=== PATIENT | female | born 1985 | race Caucasian/White ===

== ENCOUNTER → 2017-07-08 | Outpatient (REF) | payer OTHER | LOC: M LAB REF 17:25 | DX: J06.9 Acute upper respiratory infection, unspecified (principal) | CPT/HCPCS: 87633 ==

== ENCOUNTER → 2022-07-11 | Outpatient (CLI) | payer OTHER ==
[2022-07-11 14:52] LABS: ALBUMIN 3.8 G/DL (3.2-5.2); ALKALINE PHOSPHATASE 177 U/L (46-116); ALT/SGPT 14 U/L (7.0-40); AST/SGOT 21 U/L (<34); BILIRUBIN,TOTAL 0.2 MG/DL (0.3-1.2); BLOOD UREA NITROGEN 17 MG/DL (9-23); CALCIUM LEVEL 9.3 MG/DL (8.5-10.1); CARBON DIOXIDE LEVEL 22 MMOL/L (20-31); CHLORIDE LEVEL 107 MMOL/L (98-107); CREATININE FOR GFR 0.91 MG/DL (0.55-1.30); GLOMERULAR FILTRATION RATE > 60.0 (>60); GLUCOSE, FASTING 88 MG/DL (60-100); POTASSIUM SERUM 4.8 MMOL/L (3.5-5.1); SODIUM LEVEL 138 MMOL/L (136-145); TOTAL PROTEIN 7.4 G/DL (5.7-8.2)
[2022-07-11 14:55] LABS: THYROID STIMULATING HORMONE 1.793 uIU/ML (0.55-4.78)
[2022-07-11 15:33] LABS: HEMOGLOBIN A1c 5.4 % (4.0-6.0)
== END ==
LOC: M LAB 04-16 08:52 → M PLALAB 09:47
PROVIDERS: ATTEND Nurse Practitioner Adult Health
DX: R63.5 Abnormal weight gain (principal)

== ENCOUNTER → 2022-07-22 | Outpatient (CLI) | payer OTHER ==
[2022-07-23 12:05] LABS: FREE T4 0.78 NG/DL (0.89-1.76); THYROID STIMULATING HORMONE 1.569 uIU/ML (0.55-4.78); TOTAL 25(OH) VITAMIN D 19.2 NG/ML (20.0-100.0)
[2022-07-23 13:08] LABS: % LABILE ALKALINE PHOSPHATASE 61.9 %
== END ==
LOC: M PLALAB 16:30
PROVIDERS: ATTEND Family Medicine
DX: R74.8 Abnormal levels of other serum enzymes (principal)

== ENCOUNTER → 2022-08-25 | Outpatient (CLI) | payer OTHER ==
[2022-08-25 18:24] LABS: FREE T4 0.84 NG/DL (0.89-1.76)
[2022-08-25 18:25] LABS: THYROID STIMULATING HORMONE 1.602 uIU/ML (0.55-4.78)
== END ==
LOC: M PLALAB 15:41
PROVIDERS: ATTEND Family Medicine
DX: R94.6 Abnormal results of thyroid function studies (principal)

== ENCOUNTER → 2022-09-16 | Outpatient (CLI) | payer OTHER | LOC: M WHC 15:58 | PROVIDERS: ATTEND Nurse Practitioner Family | DX: Z12.31 Encounter for screening mammogram for malignant neoplasm of breast (principal) ==

== ENCOUNTER → 2022-09-24 | Outpatient (CLI) | payer OTHER | LOC: M WHC 09:39 | PROVIDERS: ATTEND Nurse Practitioner Family | DX: Z12.31 Encounter for screening mammogram for malignant neoplasm of breast (principal) ==

== ENCOUNTER → 2022-10-23 | Outpatient (CLI) | payer OTHER ==
[2022-10-23 12:26] LABS: FREE T4 0.93 NG/DL (0.89-1.76); THYROID STIMULATING HORMONE 1.278 uIU/ML (0.55-4.78)
== END ==
LOC: M PLALAB 08:41
PROVIDERS: ATTEND Family Medicine
DX: E03.9 Hypothyroidism, unspecified (principal)

== ENCOUNTER → 2022-11-26 | Outpatient (CLI) | payer OTHER | LOC: M PLAIMG 16:06 | PROVIDERS: ATTEND Nurse Practitioner Adult Health | DX: M79.672 Pain in left foot (principal); M77.32 Calcaneal spur, left foot ==

== ENCOUNTER → 2023-06-09 | Outpatient (CLI) | payer OTHER ==
[~2023-06-09] MED LIST: PROHANCE 279.3MG/ML 15ML VIAL As Ordered ONE
== END ==
LOC: M RAD 13:59
PROVIDERS: ATTEND Nurse Practitioner Family
DX: Z80.3 Family history of malignant neoplasm of breast (principal)

== ENCOUNTER 2024-09-19 02:17 | Emergency (ER) | payer OTHER ==
[~2024-09-19] VITALS: Ht 160 cm; Wt 68.9 kg
[2024-09-19] MEDS ORDERED: SERTRALINE (02:24)
[2024-09-19] MEDS ORDERED: LEVO50TA5 (02:24)
[2024-09-19] MEDS ORDERED: TIZA2TA (02:24)
[2024-09-19] MEDS ORDERED: BUPR75TA5 (02:24)
[2024-09-19] MEDS ORDERED: ACET-683 PO (02:24)
[2024-09-19] MEDS ORDERED: [UNRECOGNIZED DRUG - CODE] PO (02:24)
[2024-09-19] MEDS ORDERED: LOES1TAB9 PO (02:24)
[2024-09-19 02:55] LABS: KETONE, URINE AUTO RFX NEGATIVE (NEGATIVE); LEUKOCYTE ESTERASE UR AUTO RFX NEGATIVE (NEGATIVE); MUCUS, URINE RFX SMALL (NEGATIVE); NITRITE, URINE AUTO RFX NEGATIVE (NEGATIVE); RBC, URINE AUTO RFX 1 /HPF (0-3); SQUAM EPITHELIAL CELL UR AURFX 1 /HPF (0-6); WBC, URINE AUTO RFX 1 /HPF (0-3)
[2024-09-19 04:10] LABS: BASO % 0.3 % (0.0-1.0); EOS # 0.3 10^3/uL (0.0-0.5); EOS % 2.2 % (0.0-3.0); HEMATOCRIT 34.3 % (36.0-47.0); LYMPH # 2.6 10^3/uL (1.5-5.0); LYMPH % 22.3 % (24.0-44.0); MEAN CORPUSCULAR HEMOGLOBIN 28.5 pg (27.0-33.0); MEAN CORPUSCULAR HGB CONC 32.1 g/dl (32.0-36.5); MEAN CORPUSCULAR VOLUME 88.9 fl (80.0-96.0); MONO % 8.7 % (2.0-8.0); NEUTROPHILS # 7.6 10^3/uL (1.5-8.5); NEUTROPHILS % 66.2 % (36.0-66.0); PLATELET COUNT, AUTOMATED 387 10^3/uL (150-450); RED BLOOD COUNT 3.86 10^6/uL (4.00-5.40); WHITE BLOOD COUNT 11.5 10^3/uL (4.0-10.0)
[2024-09-19 04:50] LABS: BLOOD UREA NITROGEN 22 MG/DL (9-23); CALCIUM LEVEL 8.7 MG/DL (8.5-10.1); CARBON DIOXIDE LEVEL 20 MMOL/L (20-31); CHLORIDE LEVEL 104 MMOL/L (98-107); CREATININE FOR GFR 1.49 MG/DL (0.55-1.30); GLOMERULAR FILTRATION RATE 45.3 (>58); GLUCOSE, FASTING 87 MG/DL (60-100); HCG, SERUM QUANTITATIVE < 2.6 MIU/ML (<4.2); POTASSIUM SERUM 5.5 MMOL/L (3.5-5.1); SODIUM LEVEL 135 MMOL/L (136-145)
[2024-09-19] MEDS: KETOROLAC 30 MG/ML 1ML VIAL IV ONE (04:56)
[2024-09-19] MEDS: ONDANSETRON 4MG 2ML VIAL IV ONE (04:56)
[2024-09-19] MEDS ORDERED: KETO-204 PO (06:52)
[2024-09-19] MEDS ORDERED: TAMS-18 PO (06:52)
[2024-09-19] MEDS ORDERED: ONDA-282 PO (06:52)
[2024-09-19 07:03] VITALS: BP 113/59; TEMP 97.3; O2SAT 100
== END 2024-09-19 07:05 | disposition home or self-care (01) ==
LOC: M ED 02:17
DX: N20.1 Calculus of ureter (principal); K56.7 Ileus, unspecified; F10.10 Alcohol abuse, uncomplicated; Z79.1 Long term (current) use of non-steroidal anti-inflammatories (NSAID); Z79.2 Long term (current) use of antibiotics; Z79.899 Other long term (current) drug therapy
CPT/HCPCS: 74176; 80048; 81001; 84702; 85025; 96374; 99284; J1885; J2405

== ENCOUNTER → 2024-11-22 | Outpatient (CLI) | payer OTHER ==
[~2024-11-22] MED LIST changes: +ACET-683 PO; +BUPR75TA5; +KETO-204 PO; +LEVO50TA5; +LOES1TAB9 PO; +ONDA-282 PO; -PROHANCE 279.3MG/ML 15ML VIAL As Ordered ONE; +SERTRALINE; +TAMS-18 PO; +TIZA2TA; +[UNRECOGNIZED DRUG - CODE] PO
[2024-11-22 19:51] LABS: ALT/SGPT 19 U/L (7.0-40); AST/SGOT 22 U/L (<34); IRON (FE) 37 UG/DL (50-170); PERCENT SATURATION 9.0 % (13.2-45.0)
[2024-11-22 20:00] LABS: HEPATITIS B SURFACE ANTIBODY NEGATIVE (POSITIVE)
[2024-11-22 20:32] LABS: HEPATITIS C VIRUS ABY INDEX 0.08 INDEX (<0.8)
== END ==
LOC: M PLALAB 15:33
PROVIDERS: ATTEND Student in an Organized Health Care Education/Training Program
DX: R16.0 Hepatomegaly, not elsewhere classified (principal)

== ENCOUNTER → 2024-12-07 | Outpatient (CLI) | payer OTHER | LOC: M RAD 09:14 | PROVIDERS: ATTEND Student in an Organized Health Care Education/Training Program | DX: R16.0 Hepatomegaly, not elsewhere classified (principal) ==

== ENCOUNTER → 2024-12-07 | Outpatient (CLI) | payer OTHER ==
[~2024-12-07] MED LIST changes: +AJOV225I; -BUPR75TA5; +BUPR75TA5 PO; +DROS1TAB2 PO; +IBUP80TA PO; -LEVO50TA5; +LEVO50TA5 PO; +MULTCHW4 PO; +OMEP-173 PO; +SEMA2.4P; -TIZA2TA; +TIZA2TA PO; +ZOLO100T PO
== END ==
LOC: M RAD 09:16
PROVIDERS: ATTEND Physician Assistant
DX: N92.6 Irregular menstruation, unspecified (principal); N85.4 Malposition of uterus; N85.00 Endometrial hyperplasia, unspecified; D25.9 Leiomyoma of uterus, unspecified

== ENCOUNTER → 2025-01-09 | Outpatient (CLI) | payer OTHER ==
[2025-01-09 13:21] LABS: APPEARANCE, URINE CLEAR (CLEAR); BACTERIA, URINE AUTO 1+ (NEGATIVE); BILIRUBIN, URINE AUTO NEGATIVE (NEGATIVE); BLOOD, URINE BLOOD 2+ (NEGATIVE); GLUCOSE, URINE (UA) AUTO NEGATIVE (NEGATIVE); KETONE, URINE AUTO NEGATIVE (NEGATIVE); LEUKOCYTE ESTERASE, URINE AUTO NEGATIVE (NEGATIVE); MUCUS, URINE SMALL (NEGATIVE); NITRITE, URINE AUTO NEGATIVE (NEGATIVE); PROTEIN, URINE AUTO NEGATIVE (NEGATIVE); RBC, URINE AUTO 0 /HPF (0-3); SPECIFIC GRAVITY URINE AUTO 1.015 (1.002-1.035); SQUAMOUS EPITHELIAL CELL UR AU 0 /HPF (0-6); UROBILINOGEN, URINE AUTO 0.2 mg/dL (0.0-2.0); WBC, URINE AUTO 0 /HPF (0-3)
[2025-01-09 13:39] LABS: PLATELET COUNT, AUTOMATED 449 10^3/uL (150-450)
[2025-01-09 14:03] LABS: CALCIUM LEVEL 9.5 MG/DL (8.5-10.1); CARBON DIOXIDE LEVEL 23.0 MMOL/L (20-31); CHLORIDE LEVEL 105.0 MMOL/L (98-107); CREATININE FOR GFR 0.86 MG/DL (0.55-1.30); GLOMERULAR FILTRATION RATE 87.0 (>58); POTASSIUM SERUM 4.4 MMOL/L (3.5-5.1); PTH INTACT 32.9 PG/ML (18.5-88.0); SODIUM LEVEL 140.0 MMOL/L (136-145)
== END ==
LOC: M RAD 10:23
PROVIDERS: ATTEND Nurse Practitioner Family
DX: Z01.818 Encounter for other preprocedural examination (principal); N20.0 Calculus of kidney

== ENCOUNTER 2025-01-20 06:20 | Day surgery (SDC) | payer OTHER ==
[~2025-01-20] VITALS: Ht 160 cm; Wt 68.8 kg
[2025-01-20] MEDS ORDERED: LR 1,000 ML IV SCH (06:35)
[2025-01-20] MEDS ORDERED: LIDOCAINE 2% 100 MG/5 ML SDV (FOR ANES.) As Ordered ONE (07:18)
[2025-01-20] MEDS ORDERED: MIDAZOLAM INJ 2 MG/2 ML VIAL As Ordered ONE (07:21)
[2025-01-20] MEDS: SCOPOLAMINE 1MG TRANSDERMAL PATCH TOP ONE (07:24)
[2025-01-20] MEDS: ceFAZolin SOD 2 GM IV ONCE IV ONE (07:46)
[2025-01-20] MEDS ORDERED: ONDANSETRON 4MG 2ML VIAL As Ordered ONE (07:46)
[2025-01-20] MEDS ORDERED: dexAMETHasone 4 MG/ML 1 ML VIAL As Ordered ONE (07:47)
[2025-01-20] MEDS ORDERED: ACETAMINOPHEN 1000MG/100ML IV BAG As Ordered ONE (07:47)
[2025-01-20] MEDS: ISOVUE-300 61% 100 ML VIAL As Ordered ONE (08:01)
[2025-01-20] MEDS ORDERED: ONDANSETRON 4MG 2ML VIAL IV PRN (08:35)
[2025-01-20] MEDS ORDERED: OXYB5TAB14 PO (08:43)
[2025-01-20] MEDS ORDERED: OXYC1TAB23 PO (08:43)
[2025-01-20] MEDS ORDERED: CEPH500C PO (08:43)
[2025-01-20 09:35] VITALS: BP 121/73; TEMP 97.7; O2SAT 99
[2025-01-20] MEDS ORDERED: PERCOCET 5MG/325MG TAB PO PRN (09:50)
== END 2025-01-20 10:07 | disposition home or self-care (01) ==
LOC: M SDC 06:20
PROVIDERS: ATTEND Urology
DX: N13.2 Hydronephrosis with renal and ureteral calculous obstruction (principal); E03.9 Hypothyroidism, unspecified; K21.9 Gastro-esophageal reflux disease without esophagitis; D64.9 Anemia, unspecified; Z79.899 Other long term (current) drug therapy; F41.9 Anxiety disorder, unspecified; F32.A Depression, unspecified; Z79.890 Hormone replacement therapy; Z87.19 Personal history of other diseases of the digestive system
CPT/HCPCS: 52356; 76000; 81025; 82365; C1769; C1894; C2617; J0131; J0690; J1100; J2250; J2405; J3010; Q9967

== ENCOUNTER → 2025-03-01 | Outpatient (CLI) | payer OTHER ==
[~2025-03-01] MED LIST changes: +CEPH500C PO; +OXYB5TAB14 PO; +OXYC1TAB23 PO
== END ==
LOC: M RAD 09:48
PROVIDERS: ATTEND Nurse Practitioner Adult Health
DX: R10.22 Pelvic and perineal pain left side (principal); M25.552 Pain in left hip

== ENCOUNTER → 2025-05-05 | Outpatient (CLI) | payer OTHER ==
[~2025-05-05] MED LIST changes: +BUPR-363 PO; -BUPR75TA5 PO
== END ==
LOC: M PLAIMG 10:38
PROVIDERS: ATTEND Nurse Practitioner Adult Health
DX: R10.22 Pelvic and perineal pain left side (principal); M25.552 Pain in left hip

== ENCOUNTER → 2025-05-09 | Outpatient (REF) | payer OTHER | LOC: M LAB REF 17:12 | PROVIDERS: ATTEND Family Medicine | DX: J06.9 Acute upper respiratory infection, unspecified (principal) ==